=== PATIENT | female | born 1965 | race Caucasian/White ===

== ENCOUNTER → 2020-09-28 | Outpatient (CLI) | payer OTHER | LOC: LAB 08:05 | PROVIDERS: ATTEND Nurse Anesthetist, Certified Registered | DX: Z01.812 Encounter for preprocedural laboratory examination (principal); H26.9 Unspecified cataract; Z20.822 Contact with and (suspected) exposure to COVID-19 | CPT/HCPCS: U0003 ==

== ENCOUNTER → 2020-10-01 | Day surgery (SDC) | payer OTHER ==
[~2020-10-01] MED LIST: ACETAMINOPHEN 500 MG TABLET PO PRN; BALANCED SALT IRRIG SOLN NO.2 500 ML IO ONE; BALANCED SALT IRRIG SOLN NO.2 500 ML ONE; BENZONATATE 100 MG CAPSULE. PO PRN; BRIMONIDINE 0.2% OPHTH SOLUTION 5ML BOTTLE. OD ONE; CEFUROXIME OPHTH 4 MG/0.4 ML SYRINGE. OD ONE; CHONDROIT-SOD-HYALURONATE KIT. OD ONE; IPRATRPIUM/ALBUTEROL 0.5/2.5MG 3 ML NEBU. NEB PRN; IV RINGERS SOLUTION,LACTATED 1,000 ML IV SCH; KETOROLAC TROMETHAMINE 0.5% OPHTH SOLUTION BOTTLE. OD SCH; LIDO/EPI IN BSS OPHTH 2.7 ML SYRINGE. OD ONE; LIDOCAINE 2% JELLY 6ML IN APPLICATOR. TP ONE; MIDAZOLAM HCL PF 2 MG/2 ML VIAL. IV ONE; MIDAZOLAM HCL PF 2 MG/2 ML VIAL. ONE; ONDANSETRON PF 4 MG/2 ML VIAL. IV PRN; PHENYLEPHRINE 10% OPHTH SOLUTION 5ML BOTTLE. OD PRN; PHENYLEPHRINE 2.5% OPHTH SOLUTION 2ML BOTTLE. OD SCH; POVIDONE-IODINE 5% OPHTH SOLUTION 30ML BOTTLE. OD ONE; POVIDONE-IODINE 5% OPHTH SOLUTION 30ML BOTTLE. OD PRN; PROPARACAINE 0.5% OPHTH SOLUTION 15ML BOTTLE. OD ONE; PROPARACAINE 0.5% OPHTH SOLUTION 15ML BOTTLE. OD PRN; TOBRAMYCIN 0.3% OPHTH SOLUTION 5ML BOTTLE. OD SCH; TROPICAMIDE 1% OPHTH SOLUTION 15ML BOTTLE. OD SCH; prednisoLONE ACETATE 1% OPHTH SUSPENSION 5ML BOTTLE. OD ONE
[2020-10-01] MEDS: PHENYLEPHRINE 2.5% OPHTH SOLUTION 2ML BOTTLE. OD SCH ×3 (12:00→12:10)
[2020-10-01] MEDS: TOBRAMYCIN 0.3% OPHTH SOLUTION 5ML BOTTLE. OD SCH ×2 (12:00→12:05)
[2020-10-01] MEDS: KETOROLAC TROMETHAMINE 0.5% OPHTH SOLUTION BOTTLE. OD SCH ×2 (12:00→12:05)
[2020-10-01] MEDS: TROPICAMIDE 1% OPHTH SOLUTION 15ML BOTTLE. OD SCH ×3 (12:00→12:10)
--- NOTE | 2020-10-01 13:08 | PDOC4 ---
SURGEON: Rogelio Nick MD Date of Procedure: 10/01/20 PREOP Diagnosis Visually significant cataract: Right Eye OD Pre-existing astigmatism: Right Eye OD POSTOP Diagnosis Same PROCEDURE: Phaco w/ posterior chamber IOL: Right Eye OD ANESTHESIA Deep forniceal periocular 2% Lidocaine jelly Nela/retro bulbar block with 2% Lidocaine with 0.5% Marcaine DESCRIPTION OF PROCEDURE The risks, benefits, and alternatives were discussed with the patient who elected to proceed. Informed consent was obtained in writing and placed in the chart After anesthetizing the eye topically, the patient was taken to the operating room, and the operative eye was prepped and draped in the usual sterile fashion for ocular surgery. A wire lid speculum was placed. A 1-mm clear corneal paracentesis incision was created with the side-port blade at a position three o'clock hours clockwise from the temporal cornea. Then, 1% non-preserved Lidocaine with epinephrine was injected into the anterior chamber followed by viscoelastic. Cotton-tipped applicators were used to stabilize the globe, and a 2.4 mm keratome was used to create a self-sealing incision in clear cornea at the temporal limbus. The Utrata forceps were used to create a continuous curvilinear capsulorrhexis. Balanced saline solution was injected v ia cannula beneath the capsulorrhexis edge to hydrodissect the lens nucleus and cortex from the lens capsule. The phacoemulsification handpiece and a chopping instrument were then used to remove the lens nucleus. The remaining epinuclear material and cortex were removed with the irrigation/aspiration handpiece. Viscoelastic was used to re-inflate the lens capsule, and the intraocular lens was injected directly into the capsular bag. The corneal wound edges were hydrated with balanced salt solution on a cannula and the irrigation/aspiration handpiece was used to extract the remaining viscoelastic. Cefuroxime 0.1mg/ml / Vigamox 0.5% was injected into the anterior chamber intracamerally. The wounds were inspected and found to be watertight at an appropriate intraocular pressure. Topical antibiotic drops were placed on the corneal surface. LRI: No If Yes, Number [] [place] [] Length [] degrees Depth [] microns Incision [place]: 180 Toric Lens [place] [[id number]] Patch/shield with Maxitrol/Tobradex/Erythromycin ointment: 2 Yes No Co-managed patients/postop examination stable for co-management with referring doctor. ROGELIO NICK MD Oct 01, 2020 13:08
[2020-10-01 13:16] VITALS: BP 122/80
== END | disposition home or self-care (01) ==
LOC: SURG 11:43
PROVIDERS: ATTEND Ophthalmology
DX: H25.11 Age-related nuclear cataract, right eye (principal); H52.201 Unspecified astigmatism, right eye; E10.36 Type 1 diabetes mellitus with diabetic cataract; E78.00 Pure hypercholesterolemia, unspecified; E03.9 Hypothyroidism, unspecified; F17.210 Nicotine dependence, cigarettes, uncomplicated; Z79.899 Other long term (current) drug therapy; Z98.890 Other specified postprocedural states
CPT/HCPCS: 66984; J2250; V2632

== ENCOUNTER → 2020-10-12 | Outpatient (CLI) | payer OTHER ==
[2020-10-01 13:16] VITALS: BP 122/80
== END ==
LOC: LAB 08:00
PROVIDERS: ATTEND Nurse Anesthetist, Certified Registered
DX: Z01.812 Encounter for preprocedural laboratory examination (principal); H26.9 Unspecified cataract; Z20.822 Contact with and (suspected) exposure to COVID-19
CPT/HCPCS: U0003

== ENCOUNTER → 2020-10-15 | Day surgery (SDC) | payer OTHER ==
[~2020-10-15] MED LIST changes: -BALANCED SALT IRRIG SOLN NO.2 500 ML ONE; -BRIMONIDINE 0.2% OPHTH SOLUTION 5ML BOTTLE. OD ONE; +BRIMONIDINE 0.2% OPHTH SOLUTION 5ML BOTTLE. OS ONE; -CEFUROXIME OPHTH 4 MG/0.4 ML SYRINGE. OD ONE; +CEFUROXIME OPHTH 4 MG/0.4 ML SYRINGE. OS ONE; -CHONDROIT-SOD-HYALURONATE KIT. OD ONE; +CHONDROIT-SOD-HYALURONATE KIT. OS ONE; -KETOROLAC TROMETHAMINE 0.5% OPHTH SOLUTION BOTTLE. OD SCH; -LIDO/EPI IN BSS OPHTH 2.7 ML SYRINGE. OD ONE; +LIDO/EPI IN BSS OPHTH 2.7 ML SYRINGE. OS ONE; +LIDOCAINE 2% JELLY 6ML IN APPLICATOR. ONE; -LIDOCAINE 2% JELLY 6ML IN APPLICATOR. TP ONE; -PHENYLEPHRINE 10% OPHTH SOLUTION 5ML BOTTLE. OD PRN; +PHENYLEPHRINE 10% OPHTH SOLUTION 5ML BOTTLE. OS PRN; -PHENYLEPHRINE 2.5% OPHTH SOLUTION 2ML BOTTLE. OD SCH; -POVIDONE-IODINE 5% OPHTH SOLUTION 30ML BOTTLE. OD ONE; -POVIDONE-IODINE 5% OPHTH SOLUTION 30ML BOTTLE. OD PRN; +POVIDONE-IODINE 5% OPHTH SOLUTION 30ML BOTTLE. OS ONE; +POVIDONE-IODINE 5% OPHTH SOLUTION 30ML BOTTLE. OS PRN; -PROPARACAINE 0.5% OPHTH SOLUTION 15ML BOTTLE. OD ONE; -PROPARACAINE 0.5% OPHTH SOLUTION 15ML BOTTLE. OD PRN; +PROPARACAINE 0.5% OPHTH SOLUTION 15ML BOTTLE. OS ONE; +PROPARACAINE 0.5% OPHTH SOLUTION 15ML BOTTLE. OS PRN; -TOBRAMYCIN 0.3% OPHTH SOLUTION 5ML BOTTLE. OD SCH; -TROPICAMIDE 1% OPHTH SOLUTION 15ML BOTTLE. OD SCH; -prednisoLONE ACETATE 1% OPHTH SUSPENSION 5ML BOTTLE. OD ONE; +prednisoLONE ACETATE 1% OPHTH SUSPENSION 5ML BOTTLE. OS ONE
[2020-10-15] MEDS: TOBRAMYCIN 0.3% OPHTH SOLUTION 5ML BOTTLE. OS SCH ×2 (06:55→07:00)
[2020-10-15] MEDS: TROPICAMIDE 1% OPHTH SOLUTION 15ML BOTTLE. OS SCH ×3 (06:55→07:05)
[2020-10-15] MEDS: KETOROLAC TROMETHAMINE 0.5% OPHTH SOLUTION BOTTLE. OS SCH ×2 (06:55→07:00)
[2020-10-15] MEDS: PHENYLEPHRINE 2.5% OPHTH SOLUTION 2ML BOTTLE. OS SCH ×3 (06:55→07:05)
--- NOTE | 2020-10-15 07:57 | PDOC4 ---
SURGEON: Rogelio Nick MD Date of Procedure: 10/15/20 PREOP Diagnosis Visually significant cataract: Left Eye OS POSTOP Diagnosis Same PROCEDURE: Phaco w/ posterior chamber IOL: Left Eye OS ANESTHESIA Deep forniceal periocular 2% Lidocaine jelly Nela/retro bulbar block with 2% Lidocaine with 0.5% Marcaine DESCRIPTION OF PROCEDURE The risks, benefits, and alternatives were discussed with the patient who elected to proceed. Informed consent was obtained in writing and placed in the chart After anesthetizing the eye topically, the patient was taken to the operating room, and the operative eye was prepped and draped in the usual sterile fashion for ocular surgery. A wire lid speculum was placed. A 1-mm clear corneal paracentesis incision was created with the side-port blade at a position three o'clock hours clockwise from the temporal cornea. Then, 1% non-preserved Lidocaine with epinephrine was injected into the anterior chamber followed by viscoelastic. Cotton-tipped applicators were used to stabilize the globe, and a 2.4 mm keratome was used to create a self-sealing incision in clear cornea at the temporal limbus. The Utrata forceps were used to create a continuous curvilinear capsulorrhexis. Balanced saline solution was injected via cannula beneath the capsulorrhexis edge to hydrodissect the lens nucleus and cortex from the lens capsule. The phacoemulsification handpiece and a chopping instrument were then used to remove the lens nucleus. The remaining epinuclear material and cortex were removed with the irrigation/aspiration handpiece. Vis coelastic was used to re-inflate the lens capsule, and the intraocular lens was injected directly into the capsular bag. The corneal wound edges were hydrated with balanced salt solution on a cannula and the irrigation/aspiration handpiece was used to extract the remaining viscoelastic. Cefuroxime 0.1mg/ml / Vigamox 0.5% was injected into the anterior chamber intracamerally. The wounds were inspected and found to be watertight at an appropriate intraocular pressure. Topical antibiotic drops were placed on the corneal surface. LRI: No If Yes, Number [] [place] [] Length [] degrees Depth [] microns Incision [place]: 180 Toric Lens [place] [[id number]] Patch/shield with Maxitrol/Tobradex/Erythromycin ointment: Yes No Co-managed patients/postop examination stable for co-management with referring doctor. ROGELIO NICK MD Oct 15, 2020 07:57
[2020-10-15 08:07] VITALS: BP 132/75
== END | disposition home or self-care (01) ==
LOC: SURG 06:32
PROVIDERS: ATTEND Ophthalmology
DX: E10.36 Type 1 diabetes mellitus with diabetic cataract (principal); H25.12 Age-related nuclear cataract, left eye; E03.9 Hypothyroidism, unspecified; F17.210 Nicotine dependence, cigarettes, uncomplicated; E78.00 Pure hypercholesterolemia, unspecified; Z79.899 Other long term (current) drug therapy
CPT/HCPCS: 66984; J2250; V2632